=== PATIENT | female | born 1975 | race Caucasian/White ===

== ENCOUNTER 2017-09-22 17:18 | Emergency (ER) | payer OTHER, SELFPAY ==
[2017-09-22 17:18] VITALS: BP 148/95; PULSE 71; RESP 20; TEMP 36.4; O2SAT 100; BMI 33.4
--- NOTE | 2017-09-22 17:31 | CT_ITS ---
STUDY: CT ABDOMEN AND PELVIS WITHOUT CONTRAST REASON FOR EXAM: Female, 42 years old. Right flank pain with elevated WBC RADIATION DOSAGE (If Supplied By Facility): CTDIvol = ( 14.16 ) mGy, DLP = ( 742.93 ) mGycm TECHNIQUE: Transaxial images were obtained from the dome of the diaphragm to the symphysis pubis without oral contrast, and without intravenous contrast. Sagittal and coronal images were reconstructed. Individualized dose optimization techniques were used for this CT. COMPARISON: None. FINDINGS: The visualized lung bases are unremarkable. The visualized portions of the heart are within normal limits. Normal liver. Normal gallbladder and extrahepatic biliary system. Normal spleen. Normal pancreas. Normal bilateral adrenal glands. Enlarged right kidney with perinephric fat stranding and edema. Moderate right hydronephrosis with moderate to large right hydroureter. There appears to be a stone at the right UVJ measuring 3.4 mm. Punctate nonobstructing left nephrolith in the mid to upper pole region measuring 3 mm. Moderate to large hiatal hernia with the majority of the stomach above the left hemidiaphragm. Normal small intestine. Normal colon. The appendix is visualized and appears normal. Normal abdominal aorta. Normal inferior vena cava. Normal retroperitoneum. Normal urinary bladder. Normal visualized uterus. Normal abdominal wall. Normal osseous structures. CT/Abdomen/Pelvis without Cont IMPRESSION: 1. Moderate right hydronephrosis with moderate right hydroureter as well as right perinephric fat stranding and edema. Stone at the right UVJ as above 2. Nonobstructing left nephrolith 3. Moderate to large hiatal hernia Electronically Signed: Aroldo Goldberg DO at 18:51 EDT Tel , Service support ,
[2017-09-22] MEDS: Ondansetron 4 MG/2 ML Vial IV (17:45)
[2017-09-22] MEDS: Ketorolac 30 MG/ML Syringe IV (17:45)
[2017-09-22 17:50] LABS: Absolute Neutrophil Count 9.4 X10^3/uL (2.0-7.7); Basophil# 0.04 X10^3/uL; Basophil% 0.3 % (0-1); Eosinophil# 0.12 X10^3/uL; Hematocrit 40.3 % (37-47); Hemoglobin 13.9 g/dl (12.0-15.0); Lymphocyte % 16.4 % (19-41); Mean Corp Hgb Conc 34.5 g/gl (32-36); Mean Corpuscular Hgb 27.7 pg (27.0-32.0); Mean Corpuscular Volume 80.4 fL (81-99); Mean Platelet Vol. 12.2 fl (6.2-12.0); Monocyte# 0.61 X10^3/uL; Neutrophil # 9.37 X10^3/uL (2.7-7.7); Neutrophil % 77.1 % (47-70); Platelet Count 236 K/mm3 (150-450); RBC Distribution Width CV 14.8 % (11.6-14.6); RBC Distribution Width SD 42.5 fl (35.1-43.9); Red Blood Count 5.01 M/mm3 (4.2-5.4); White Blood Count 12.2 K/mm3 (4.4-11.0)
[2017-09-22] MEDS: 0.9% Normal Saline 1,000 ML 250 ML IV (17:56)
[2017-09-22 17:57] LABS: POSITIVE COUNT NO; POSITIVE DIFFERENTIAL NO; POSITIVE MORPHOLOGY NO
[2017-09-22 18:12] LABS: Pregnancy, Serum, hCG Quali. NEGATIVE Negative (0-9 Nonpreg)
[2017-09-22 18:16] LABS: Bacteria 0 SEEN /hpf (None Seen); Mucous, Urine 0 SEEN /hpf (<or=2+); Red Blood Cells-Urine 0 SEEN /hpf (0-5); White Blood Cells 0 SEEN /hpf (0-5)
[2017-09-22 18:19] LABS: Color, Urine Yellow (Yellow); Glucose, Dipstick Normal (Normal); Ketone-Dipstick 50 mg/dl (Negative); Leukocyte Esterase-Dipstick 25 /ul (Negative); Nitrite-Dipstick Negative (Negative); Occult Blood-Urine Negative /ul (Negative); Protein-Dipstick 15 mg/dl (Negative); Specific Gravity, Urine 1.015 (1.002-1.030); Urine Bilirubin Dipstick Negative (Negative); Urine Clarity Clear (Clear); Urine Urobilinogen Normal (Normal)
[2017-09-22 18:28] LABS: Squamous Epithelial Cells - UA 5-10 SEEN /hpf (5-10)
--- NOTE | 2017-09-22 18:32 | ED.VISSUMM ---
- ER Visit Summary Date of Service: 09/22/17 Chief Complaint: Acute right flank pain History of Present Illness: The patient is a 42 F who presents with acute right flank pain that radiates to the right groin. Onset 1400. Pain is constant and severe. She complains of urgency. She does complain of nausea and vomiting several times. She complained of sweating during the nausea and vomiting. She denies fever or chills. She denies prior history of renal ureterolithiasis. She denies dysuria, frequency or hematuria. Last menses 2-3 weeks ago. She denies any vaginal bleeding or vaginal discharge. There is no history of trauma. She denies cough, shortness of breath or difficulty breathing. She denies chest pain, dyspnea on exertion, orthopnea or PND. She denies any skin lesions or rash. Please read written note for complete detail Physical Examination: Blood pressure elevated 148/95. Patient appears uncomfortable. She is diaphoretic. Insert HEENT exam. Heart is regular without murmur, gallop or rub. S1 and S2 are normal. Lungs are clear to auscultation with good movement of air bilaterally. Abdomen is soft nontender with decreased bowel sounds. There is no dermatologic lesions to suggest herpes varicella-zoster. She does have right CVA tenderness. Neuro exam is nonfocal. Test Results: White count slightly elevated 12.2 thousand. 77 segs. test is negative. UA is negative for blood leukoesterase and nitrites. Micro is negative. CT flank reveals a 3.4 mm right UVJ calculus with hydroureter and hydronephrosis. Emergency Department Course and Treatment: To evaluate patient's acute onset of right flank pain rating to the right grown a CT of the abdomen without contrast was ordered. Serum test was ordered as well as CBC and UA. She was medicated with 4 mg of Zofran and 30 minutes Toradol IV push. She was seen in the hallway walking. She is no longer diaphoretic. She does report improvement of her pain. Treatment Plan: Prescription for Naprosyn, Percocet and Flomax and outpatient urology follow-up. Appropriate home-going instructions Disposition: Discharged home in stable improved condition Impression: Right UVJ calculus with hydroureter and hydronephrosis This note was generated with [employer] software. It may contain incorrect words, spelling, and punctuation that were not noted in review of the chart prior to signing ED Disposition - Plan for ED Patient: Chief Complaint: Abd Pain Instructions: ED Stone Renal W Colic Prescriptions: Oxycodone HCl/Acetaminophen [Percocet 5/325] 1 tab PO Q6H PRN PRN 5 Days #20 tab PRN Reason: Pain Tamsulosin HCl [Flomax] 0.4 mg PO DAILY #7 cap Naproxen [Naprosyn] 500 mg PO BID #14 tab Referrals: Care Physician,No Primary [Primary Care Provider] - Uvaldo Nevarez MD [STAFF PHYSICIAN] - 5-7 Days
[2017-09-22] MEDS: oxyCODONE 5 MG Tablet PO (19:34)
[2017-09-22] MEDS: Tamsulosin HCl 0.4 MG Capsule PO (19:34)
[2017-09-22 19:38] VITALS: BP 136/89; PULSE 69; RESP 16; O2SAT 97
== END 2017-09-22 19:39 | disposition home or self-care (01) ==
LOC: ED 18:31
PROVIDERS: Emergency Provider Emergency Medicine
DX: N13.2 Hydronephrosis with renal and ureteral calculous obstruction (principal); N13.4 Hydroureter; E66.9 Obesity, unspecified; Z72.0 Tobacco use
CPT/HCPCS: 74176; 81001; 84703; 85025; 96361; 96374; 96375; 99284; A4216; J2405

== ENCOUNTER 2018-07-13 14:20 | Emergency (ER) | payer OTHER, SELFPAY ==
[2018-07-13 14:20] VITALS: BP 155/79; PULSE 75; RESP 22; TEMP 36.2; O2SAT 97; BMI 34.0
[2018-07-13 14:50] LABS: Color, Urine Yellow (Yellow); Glucose, Dipstick Normal (Normal); Ketone-Dipstick 50 mg/dl (Negative); Leukocyte Esterase-Dipstick 25 /ul (Negative); Nitrite-Dipstick Negative (Negative); Occult Blood-Urine 250 /ul (Negative); Protein-Dipstick 30 mg/dl (Negative); Specific Gravity, Urine 1.025 (1.002-1.030); Urine Bilirubin Dipstick Negative (Negative); Urine Clarity Sl. Cloudy (Clear); Urine Urobilinogen 1 mg/dl (Normal)
[2018-07-13 14:55] LABS: Mucous, Urine 2+ /hpf (<or=2+); Red Blood Cells-Urine 0-5 SEEN /hpf (0-5); Squamous Epithelial Cells - UA 0-5 SEEN /hpf (5-10); White Blood Cells 0-5 SEEN /hpf (0-5)
[2018-07-13 14:56] LABS: Bacteria RARE /hpf (None Seen); Calcium Oxalate Crystals Ur 2+ /hpf (<or=2+)
--- NOTE | 2018-07-13 15:13 | CT_ITS ---
STUDY: CT ABDOMEN AND PELVIS WITHOUT CONTRAST REASON FOR EXAM: Female, 42 years old. Left flank pain, history of prior hernia repair RADIATION DOSAGE (If Supplied By Facility): CTDIvol = ( 12.94 ) mGy, DLP = ( 978.34 ) mGycm TECHNIQUE: Transaxial images were obtained from the dome of the diaphragm to the symphysis pubis without oral contrast, and without intravenous contrast. Sagittal and coronal images were reconstructed. Individualized dose optimization techniques were used for this CT. COMPARISON: None. FINDINGS: The visualized lung bases are unremarkable. The visualized portions of the heart are within normal limits. Normal liver. Normal gallbladder and extrahepatic biliary system. Normal spleen. Normal pancreas. Normal bilateral adrenal glands. Punctate calculi of the right kidney are evident but no hydronephrosis or hydroureter of the right side. Mild left hydronephrosis and hydroureter with left perinephric and periureteral stranding. There is a 4.7 mm calculus in the distal left ureter on axial image 168 . 3 mm calculus of upper left renal calyx also identified. Persistent large hiatal hernia without gastric wall thickening or perigastric fluid/induration. No dilated loops of small bowel. There are multiple colonic diverticula consistent with diverticulosis. The appendix is visualized and appears normal. Normal abdominal aorta. Normal inferior vena cava. Normal retroperitoneum. Normal urinary bladder. Normal visualized uterus. Small follicle left ovary measuring 1.9 cm. Normal abdominal wall. Normal osseous structures. CT/Abdomen/Pelvis without Cont IMPRESSION: 1. Distal left ureter stone just above the UVJ with hydronephrosis and hydroureter. 2. Large hiatal hernia. 3. Bilateral nephrolithiasis. Electronically Signed: Rubin De Los Santos MD at 16:42 EST , Service support ,
--- NOTE | 2018-07-13 15:14 | ED.DCSUM_ITS ---
- ER Visit Summary Date of Service: 07/13/18 Chief Complaint: Left flank pain History of Present Illness: The patient is a 42 F presenting with left flank pain. Patient states it started around 10 AM. She has a history of kidney stones and this feels similar. She has had subjective fever, nausea, vomiting. She has had dysuria, hematuria, urinary frequency. She complains of left low back pain. Denies other complaints. Physical Examination: Vitals are stable. Patient is afebrile. Alert no acute distress. HEENT exam is unremarkable. Neck is supple. Lungs are clear and equal bilaterally. Heart is regular rate and rhythm. Abdomen is soft nontender nondistended. No guarding or rebound Left CVA tenderness Extremities are unremarkable. Skin is warm and dry. Remainder of exam is unremarkable. Emergency Department Course and Treatment: Patient given morphine, Zofran, Toradol. Urinalysis shows 0-5 white blood cells, 0-[address] flank shows distal left ureter stone just above the UVJ with hydronephrosis and hydroureter. Large hiatal hernia. Bilateral nephrolithiasis. On reevaluation, patient is feeling improved. She is advised to follow-up with Dr. Nevarez. She is given prescription for Percocet and Zofran. Advised return to ED if worsening complaints. Disposition: Discharge home Impression: Urolithiasis This note was generated with [employer] dictation software. It may contain incorrect words, spelling, and punctuation that were not noted in review of the chart prior to signing ED Disposition - Plan for ED Patient: Referrals: Care Physician,No Primary [Primary Care Provider] -
[2018-07-13] MEDS: Ketorolac 30 MG/ML Syringe IV (15:17)
[2018-07-13] MEDS: Morphine 4 MG/ML Syringe IV (15:17)
[2018-07-13] MEDS: Ondansetron 4 MG/2 ML Vial IV (15:18)
[2018-07-13 15:58] VITALS: BP 126/83; PULSE 85; RESP 16; O2SAT 93
--- NOTE | 2018-07-13 17:51 | ED.DEP ---
ED Disposition - Plan for ED Patient: Instructions: ED Stone Renal W Colic Prescriptions: Oxycodone HCl/Acetaminophen [Percocet 5/325] 1 tablet PO Q6H PRN PRN 3 Days #12 tablet PRN Reason: Pain Ondansetron [Zofran Odt] 4 mg PO Q8H PRN PRN #10 tablet PRN Reason: Nausea Referrals: Uvaldo Nevarez MD [STAFF PHYSICIAN] -
[2018-07-13 18:00] VITALS: BP 123/82; PULSE 79; RESP 16; O2SAT 96
[2018-07-13] MEDS: Ondansetron ODT 4 MG Tablet 16 MG PO (18:15)
[2018-07-13] MEDS: oxyCODONE 5 MG Tablet 20 MG PO (18:15)
== END 2018-07-13 18:16 | disposition home or self-care (01) ==
LOC: ED 15:58
PROVIDERS: Emergency Provider Emergency Medicine
DX: N13.2 Hydronephrosis with renal and ureteral calculous obstruction (principal); Z87.442 Personal history of urinary calculi
CPT/HCPCS: 74176; 81001; 96374; 96375; 99283; J2405

== ENCOUNTER 2023-09-21 17:44 | Emergency (ER) | payer OTHER, SELFPAY ==
[2023-09-21 17:45] VITALS: BP 121/87; PULSE 66; RESP 16; TEMP 36.3
[2023-09-21 17:46] VITALS: BP 121/87; PULSE 66; RESP 18; TEMP 36.3; BMI 32.9
--- NOTE | 2023-09-21 18:03 | CT_ITS ---
STUDY: CT ABDOMEN AND PELVIS WITHOUT CONTRAST REASON FOR EXAM: Female, 48 years old. Pain RADIATION DOSAGE (If Supplied By Facility): CTDIvol = ( 10.90 ) mGy, DLP = ( 571.68 ) mGycm TECHNIQUE: Transaxial images were obtained from the dome of the diaphragm to the symphysis pubis without oral contrast, and without intravenous contrast. Sagittal and coronal images were reconstructed. Individualized dose optimization techniques were used for this CT. COMPARISON: None. FINDINGS: The visualized lung bases are unremarkable. The visualized portions of the heart are within normal limits. Normal liver. Normal gallbladder and extrahepatic biliary system. Normal spleen. Normal pancreas. Normal bilateral adrenal glands. Hydronephrosis of the right kidney with perinephric stranding. Right hydroureter. Normal left kidney. Large hiatal hernia. Normal small intestine. Normal colon. The appendix is visualized and appears normal. Normal abdominal aorta. Normal inferior vena cava. Normal retroperitoneum. 2 mm stone in the urinary bladder. Normal abdominal wall. Normal osseous structures. CT/Abdomen/Pelvis without Cont IMPRESSION: Hydronephrosis of the right kidney with perinephric stranding. Right hydroureter. There is a stone in the urinary bladder. Large hiatal hernia. Electronically Signed: Tj Arthur DO at 19:54 EDT ,
--- NOTE | 2023-09-21 18:06 | EDS_ITS ---
HPI HPI - GI History of Present Illness Chief Complaint: Flank Pain Informant: patient and spouse/S.O. Abdominal Pain/Flank Pain Onset: Today and Hours Context: Sudden Onset Timing: Continuous Quality: Sharp and Stabbing Location: Right Flank Current Severity: Moderate Maximum Severity: Moderate Worsened by: Nothing Relieved by: Nothing Nausea/Vomiting/Emesis GI Symptom: Positive for Nausea and Vomiting Onset: Today Severity: Mild Diarrhea/Melena/Hematochezia GI Symptom: Negative for Diarrhea, Melena or Hematochezia Associated Symptoms Associated Symptoms: Negative for Dysuria, Frequency, Hematuria or Urgency Narrative Narrative: 48-year-old female history of prior kidney stones. Has never needed surgery to have any of them removed. Nor lithotripsy. States that she had right flank pain began around 430 this morning. Its progressively gotten worse. Denies any fever but she has had cold sweats with nausea and vomiting. Said her urine appears cloudy but not bloody. No recent dysuria. Prior similar symptoms: Yes Recent Illness/Hospitalization: No PFSH PFSH Medical History Kidney stone Home Medications ondansetron 4 mg disintegrating tablet 4 mg PO Q8H PRN PRN Nausea #10 tabs 07/13/18 [Rx Last Taken Unknown] ondansetron 4 mg disintegrating tablet 4 mg PO Q6H PRN nausea and vomiting #7 tabs 09/21/23 [Rx Last Taken Unknown] Allergy/AdvReac Type Severity Reaction Status Date / Time No Known Allergies Allergy Verified 09/21/23 17:45 Social History Smoking Status: Never smoker ROS ROS ED ROS Narrative Right flank pain today. Nausea vomiting. Review of Systems ROS Unobtainable: Denies due to encephalopathy Constitutional Constitutional ED: Reports sweats; Denies fever(s) ENT ENT ED: Denies ear pain Cardiovascular Cardiovascular: Denies chest pain or palpitations Respiratory/Chest Respiratory/Chest: Denies cough or dyspnea Gastrointestinal Gastrointestinal: Reports abdominal pain, nausea and vomiting; Denies constipation, diarrhea or melena Genitourinary Genitourinary ED: Denies dysuria, hematuria or urinary frequency Musculoskeletal Musculoskeletal: Reports back pain; Denies arthralgias Integumentary Denies abscess or Abrasions Neurologic Neurologic: Denies headache(s) Psychiatric Psychiatric: Denies anxiety Endocrine Endocrinology: Denies polydipsia Hematologic/Lymphatic Hematologic/Lymphatic: Denies easy bleeding Allergic/Immunologic Allergic/Immunologic ED: Denies mouth swelling, tongue swelling or urticaria EXAM Physical Exam Narrative Exam Narrative: 40-year-old female vital signs stable afebrile. Sitting upright in bed. H EENT exam unremarkable. Lungs clear. Heart regular rhythm rate about 65. Chest wall and ribs nontender. Abdomen soft, nontender, nondistended, normal bowel s ounds without peritoneal signs. Moving all 4 extremities. Nontender no edema. Back no reproducible pain. Neurologically she is awake alert no focal motor deficits. Const Vital Signs: 09/21/23 17:46 09/21/23 17:45 Temperature 97.4 F L 97.4 F L Temperature Source Oral Oral Pulse Rate 66 66 Respiratory Rate 18 16 Blood Pressure 121/87 H 121/87 H Blood Pressure Mean 98 98 Positive well nourished and well developed; Negative for cachectic, contractures or unkempt General Appearance ED: well developed and NAD; Negative for unkempt, cachectic, contractures or pallor Nutritional Appearance: Negative for cachectic HEENT Reports moist mucous membranes normocephalic and atraumatic; Negative for trauma or tenderness Eyes PERRL and EOMs intact bilaterally General Eye ED: Negative for pale conjunctiva or scleral icterus Neck no lymphadenopathy, supple and no JVD General: Negative for tenderness Lymph Lymphatic: Negative for other Resp normal respiratory effort and clear to auscultation bilaterally Effort and Inspection: Negative for respiratory distress Auscultation: Negative for rales, rhonchi or wheezes Cardio regular rate, regular rhythm, S1 normal heart sound, S2 normal heart sound and no murmurs Rate: Negative for bradycardia or tachycardic Rhythm: Negative for abnormal rhythm GI non-tender, non-distended and no masses Inspection: Negative for abdominal distention Auscultation: normoactive bowel sounds Palpation: soft; Negative for tender, guarding, pulsatile mass or rebound tenderness present Back/Spine no CVA tenderness General Back: Negative for CVA tenderness Cervical Spine: Negative for cervical spine tenderness Thoracic Spine / Upper Back: Negative for thoracic spinal tenderness Lumbar Spine / Lower Back: Negative for lumbar spinal tenderness Extremity full ROM General Extremety ED: Negative for edema or tenderness General Extremity: Negative for edema Neuro CN's II-XII intact bilaterally and moves all extremities Sensorium / Orientation: alert, oriented to person, oriented to place and oriented to time; Negative for orientation impaired, confused, lethargic or stuporous Motor Exam: strength 5/5 throughout; Negative for general weakness or strength abnormal Psych mental status grossly normal and thought process normal Appearance: Negative for unkempt Attitude: No agitated Mood & Affect: Negative for depressed, anxious or tearful Skin no wounds General Skin Exam: Negative for jaundice or pallor Lesions: no lesions Rashes: no rashes Trauma: Negative for abrasion Nails: Negative for discolored MDM MDM MDM Narrative Medical decision making narrative: 48-year-old female right flank pain with a history of kidney stones. CAT scan labs pending. Differential acute kidney stone versus UTI or pyelonephritis versus other etiologies. Treated with IV fluids, Toradol, morphine and Zofran. Repeat exam at 8 PM patient doing well. Pain is resolved. Nausea is resolved. Went over test results. Her labs are unremarkable. Her UA shows no signs of infection. There is also no red cells or microscopic blood. The CAT scan shows a dilated ureter on the right but no obvious stone both read by the radiologist and reviewed by me. She may have had a stone that passed into her bladder. Patient is comfortable being discharged home she will be written for nausea medication. Follow-up if not improving with urology or return if feeling worse. She does not have a primary care physician at this time or urologist. History & Record Review Discussion w/independent historian: Patient Additional record(s) reviewed:: Prior inpatient record, Prior outpatient record, Prior ED visit and Prior labs Lab Data Attestation: I reviewed the patient's lab results. Lab results narrative: White count elevated 12.7. H&H of 15 and 47. Platelets 242. Electrolytes show gap 7. BUN and creatinine 18 and 1.1. Glucose 134. UA has no nitrates. No white or red cells. No bacteria. Labs: Laboratory Results - last 24 hr 09/21/23 18:16 WBC 12.7 H RBC 5.59 H Hgb 15.3 H Hct 47.0 MCV 84.1 MCH 27.4 MCHC 32.6 RDW Std Deviation 42.0 RDW Coeff of [place] 13.7 Plt Count 242 MPV 12.2 H Immature Gran % (Auto) 0.200 Neut % (Auto) 88.1 H Lymph % (Auto) 8.0 L Scott % (Auto) 3.2 Eos % (Auto) 0.1 Baso % (Auto) 0.4 Absolute Neuts (auto) 11.2 H Absolute Lymphs (auto) 1.01 Nucleated RBC % 0 Sodium 140 Potassium 3.9 Chloride 107 Carbon Dioxide 26.0 Anion Gap 7 BUN 18 Creatinine 1.16 H Estim Creat Clear Calc 75.09 Est GFR (MDRD) Af Amer 64 Est GFR (MDRD) Non-Af 53 L BUN/Creatinine Ratio 15.5 Glucose 134 H Calcium 10.0 Urine Color Yellow Urine Clarity Cloudy Urine pH 8.0 Ur Specific [place] 1.015 Urine Protein Negative Urine Glucose (UA) Normal Urine Ketones 50 H Urine Occult Blood Negative Urine Nitrite Negative Urine Bilirubin Negative Urine Urobilinogen Normal Ur Leukocyte Esterase 25 H Urine RBC 0 SEEN Urine WBC 0-5 SEEN Ur Squamous Epith Cells 0 SEEN Amorphous Sediment 1+ Urine Bacteria 0 SEEN Urine Mucus 0 SEEN Discharge Plan Triage Chief Complaint: Flank Pain ED Provider: Evangelista Abrams Dx/Rx/DC Orders Clinical Impression: Acute right flank pain, History of kidney stones, Nausea & vomiting Instructions: ED Flank Pain, Uncertain Cause Prescriptions: New ondansetron 4 mg tablet,disintegrating 4 mg PO Q6H PRN (Reason: nausea and vomiting) Qty: 7 0RF No Action ondansetron 4 MG tablet 4 mg PO Q8H PRN PRN (Reason: Nausea) Qty: 10 0RF Primary Care Provider: Care Physician,No Primary Referrals: Alem Drake MD [Med Staff - Active Staff] - 3-5 Days if not improving Uvaldo Nevarez MD [Med Staff - Active Staff] - 3-5 Days if not improving Care Physician,No Primary [Primary Care Provider] - Activity Restrictions/Additional Instructions: Possibly kidney stone to pass in your bladder. No signs of an acute stone and stuck. No stones in your right kidney. Your urine does not look infected nor was there any blood in it. Motrin and Tylenol for pain. Zofran as needed for nausea. Follow-up with one of the 2 urologist listed if you not feeling better. Return if a lot worse. Disposition Disposition: Home, Self Care
[2023-09-21 18:25] LABS: Bacteria 0 SEEN /hpf (None Seen); Mucous, Urine 0 SEEN /hpf (<or=2+); Red Blood Cells-Urine 0 SEEN /hpf (0-5); Squamous Epithelial Cells - UA 0 SEEN /hpf (5-10)
[2023-09-21] MEDS: Ketorolac 30 MG/ML Syringe IV (18:26)
[2023-09-21] MEDS: 0.9% Normal Saline (1000mL) 1,000 ML 1000 ML IV (18:26)
[2023-09-21] MEDS: morphine 8 MG/ML Syringe IV (18:26)
[2023-09-21] MEDS: Ondansetron 4 MG/2 ML Vial IV (18:26)
[2023-09-21 18:27] LABS: Absolute Lymphocyte Count 1.01 X10^3/uL (0.83-4.51); Absolute Neutrophil Count 11.2 X10^3/uL (2.0-7.7); Basophil# 0.05 X10^3/uL; Basophil% 0.4 % (0-1); Color, Urine Yellow (Yellow); Eosinophil# 0.01 X10^3/uL; Eosinophils% 0.1 % (0-5); Glucose, Dipstick Normal (Normal); Hemoglobin 15.3 g/dL (12.0-15.0); Ketone-Dipstick 50 mg/dl (Negative); Leukocyte Esterase-Dipstick 25 /ul (Negative); Lymphocyte # 1.01 X10^3/ul (0.83-4.51); Mean Corp Hgb Conc 32.6 g/dL (32-36); Mean Corpuscular Hgb 27.4 pg (27.0-32.0); Mean Corpuscular Volume 84.1 fL (81-99); Mean Platelet Vol. 12.2 fl (6.2-12.0); Monocyte% 3.2 % (0-10); NRBC Flagged by Analyzer 0 % (0-5); Neutrophil # 11.18 X10^3/uL (2.7-7.7); Neutrophil % 88.1 % (47-70); Nitrite-Dipstick Negative (Negative); Occult Blood-Urine Negative /ul (Negative); Platelet Count 242 K/mm3 (150-450); Protein-Dipstick Negative (Negative); RBC Distribution Width CV 13.7 % (11.6-14.6); Red Blood Count 5.59 M/mm3 (4.2-5.4); Specific Gravity, Urine 1.015 (1.002-1.030); Urine Bilirubin Dipstick Negative (Negative); Urine Clarity Cloudy (Clear); Urine Urobilinogen Normal (Normal); White Blood Count 12.7 K/mm3 (4.4-11.0)
[2023-09-21 18:35] LABS: Amorphous Sediment 1+; White Blood Cells 0-5 SEEN /hpf (0-5)
[2023-09-21 18:40] LABS: Anion Gap 7 (5-15); BUN 18 mg/dL (7-18); BUN/Creat Ratio 15.5 RATIO (10-20); Chloride 107 mmol/L (98-107); Creatinine, Serum 1.16 mg/dL (0.55-1.02); EST Glomerular Filtration Rate 53 mL/min (>60); Est Glom Filt Rate - Afr Amer 64 mL/min (>60); Estimated Creatinine Clearance 75.09 ml/min; Glucose 134 mg/dL (74-106); Potassium 3.9 mmol/L (3.5-5.1); Sodium Level 140 mmol/L (136-145)
[2023-09-21 19:45] VITALS: BP 125/72; PULSE 72; RESP 16; O2SAT 96
[2023-09-21 20:27] VITALS: BP 124/70; PULSE 72; RESP 16; TEMP 36.9; O2SAT 97
== END 2023-09-21 20:28 | disposition home or self-care (01) ==
PROVIDERS: Emergency Provider Emergency Medicine; Visit Provider Emergency Medicine
DX: R10.9 Unspecified abdominal pain (principal); R11.2 Nausea with vomiting, unspecified; Z87.442 Personal history of urinary calculi
CPT/HCPCS: 74176; 80048; 81001; 85025; 96361; 96374; 96375; 99284; J7030; A4216; J2405